=== PATIENT | female | born 1975 | race Hispanic/Latino ===

== ENCOUNTER 2023-06-23 15:53 | Emergency (ER) | payer SELFPAY ==
[2023-06-23 18:34] LABS: Albumin 3.1 g/dL (3.4-5.0); Albumin/Globulin Ratio 0.8 (1.1-1.8); Bilirubin Total 1.7 mg/dL (0.2-1.0); Globulin 3.9 g/dL (2.3-3.5)
[2023-06-23 18:44] LABS: Absolute Basophils 0.1 K/uL (0-0.5); Absolute Lymphocytes (CBC) 1.4 K/uL (0.7-4.9); Absolute Monocytes 0.8 K/uL (0.1-1.3); Absolute Neutrophil 6.3 K/uL (1.8-8.0); Basophils % 0.7 % (0-1.3); Eosinophils % 0.3 % (0-4.4); Hematocrit 36.9 % (36.0-45.0); Hemoglobin 11.8 g/dL (12.0-15.0); Lymphocytes % 16.7 % (15.3-44.8); MCH 24.2 pg (27.0-35.0); MCHC 31.9 g/dL (32.0-36.0); MCV 75.8 fL (80-100); MPV 8.1 fL (7.6-11.3); Monocytes % 9.2 % (3.3-12.3); Neutrophils % 73.1 % (41.7-73.7); Platelets 396 thou/uL (152-406); RBC Red Blood Cell Count 4.87 M/uL (3.86-4.86); Red Cell Distribution Width 18.6 % (12.1-15.2)
--- NOTE | 2023-06-23 19:11 | EDPHYS ---
Physician Documentation [facility] Name: Angeli Bueno Age: 47 yrs Sex: Female : 1975 Arrival Date: 06/23/2023 Time: 15:53 Bed DX3 Private MD: ED Physician Yaron López HPI: 06/22 16:44 This 47 yrs old Female presents to ER via Ambulatory with complaints of Leg ec2 Pain. 16:44 Patient arrives today for evaluation of bilateral lower extremity swelling. Patient ec2 reports that she was previously seen for this and was prescribed Lasix. Patient reports no significant difficulty breathing, no chest pain. Patient reports no known cardiac disease, no known renal or liver pathology. Patient reports she has not taken Lasix in the bedtime.. Historical: - Allergies: 16:37 No Known Allergies; nj1 - PMHx: 16:37 None; nj1 - Immunization history:: Client reports receiving the 2nd dose of the Covid vaccine. - Infectious Disease History:: Denies. - Social history:: Smoking status: Patient denies any tobacco usage or history of. ROS: 16:44 Constitutional: as per hpi ec2 Exam: 16:44 Constitutional: GEN: NAD Head: atraumatic Eyes: EOMI Ears: External ears are ec2 normal. CV: regular rate, 2+ bilateral lower extremity edema from the ankle up to the knee. LUNGS: no respiratory distress ABD: non-distended SKIN: no evidence of rashes MSK: no evidence of trauma NEURO: moves all extremities equally Vital Signs: 16:32 BP 129 / 93; Pulse 74; Resp 16; Temp 98.2(O); Pulse Ox 95% on R/A; Weight 72.57 kg (M); nj1 Height 5 ft. 4 in. ; Pain 7/10; 16:32 Body Mass Index 26.66 (72.57 kg, 165 cm) nj1 16:32 Pain Scale: Adult nj1 MDM: 16:38 Patient medically screened. ec2 16:44 Data reviewed: vital signs. ED course: Patient arrives today for evaluation of lower ec2 extremity edema. Examination remarkable for cardiovascular findings as above. Will obtain lab work, will assess for renal dysfunction, liver pathology. Patient otherwise with no chest pain to indicate she is having ACS.. 19:10 ED course: On reassessment patient is well-appearing in no acute distress. Discharged ec2 home and started on Lasix. Will give information follow-up primary care doctor. Return precautions given. Patient needs outpatient evaluation for congestive heart failure.. 06/22 16:42 Order name: CBC with Diff; Complete Time: 18:58 ec2 06/22 16:42 Order name: CMP; Complete Time: 18:46 ec2 06/22 16:42 Order name: BNP; Complete Time: 18:46 ec2 Administered Medications: 19:28 Drug: Furosemide PO 20 mg PO once Route: PO; cm10 19:30 Follow up: Response: Medication administered at discharge. cm10 Disposition Summary: 06/23/23 19:10 Discharge Ordered Notes: Location: Home ec2 Condition: Stable ec2 Diagnosis - Lower Extremity Edema ec2 Followup: ec2 - With: Private Physician - When: - Reason: Recheck today's complaints, Re-evaluation by your physician Followup: ec2 - With: Jeffy Rubio DO - When: - Reason: Recheck today's complaints Discharge Instructions: - Discharge Summary Sheet ec2 Forms: - Medication Reconciliation Form ec2 - Thank You Letter ec2 - Antibiotic Education ec2 - Prescription Opioid Use ec2 - Patient Portal Instructions ec2 - Leadership Thank You Letter ec2 Prescriptions: - Lasix 20 mg Oral Tablet - take 1 tablet ORAL route once daily; 20 tablet; Refills: 0, Product Selection ec2 Permitted Signatures: Dispatcher [employer] Emma Rodrigez RN RN nj1 Kiki Brito RN RN cm10 Yaron López MD MD ec2
--- NOTE | 2023-06-23 19:11 | ER ---
Nurse's Notes [facility] Name: Angeli Bueno Age: 47 yrs Sex: Female : 1975 Arrival Date: 06/23/2023 Time: 15:53 Bed DX3 Private MD: Diagnosis: Lower Extremity Edema Presentation: 06/22 16:32 Chief complaint: Patient states: Swollen legs for about a week, getting worse. Seen at [facility] a clinic earlier today and was advised to come to ED for further evaluation and treatment. Coronavirus screen: Vaccine status: Patient reports receiving the 2nd dose of the covid vaccine. Ebola Screen: Patient denies travel to an Ebola-affected area in the 21 days before illness onset. Initial Sepsis Screen: Does the patient meet any 2 criteria? No. Patient's initial sepsis screen is negative. Does the patient have a suspected source of infection? No. Patient's initial sepsis screen is negative. Risk Assessment: Do you want to hurt yourself or someone else? Patient reports no desire to harm self or others. Onset of symptoms was June 2023. 16:32 Method Of Arrival: Ambulatory [facility] 16:32 Acuity: JANNY 3 [facility] Triage Assessment: 16:38 General: Appears in no apparent distress. comfortable, Behavior is calm, cooperative, [facility] appropriate for age. Pain: Complains of pain in right leg and left leg Pain currently is 7 out of 10 on a pain scale. Historical: - Allergies: 16:37 No Known Allergies; ar1 - PMHx: 16:37 None; [facility] - Immunization history:: Client reports receiving the 2nd dose of the Covid vaccine. - Infectious Disease History:: Denies. - Social history:: Smoking status: Patient denies any tobacco usage or history of. Screenin:29 [facility] ED Fall Risk Assessment (Adult) History of falling in the last 3 months, cm10 including since admission No falls in past 3 months (0 pts) Confusion or Disorientation No (0 pts) Intoxicated or Sedated No (0 pts) Impaired Gait No (0 pts) Mobility Assist Device Used No (0 pt) Altered Elimination No (0 pt) Score/Fall Risk Level 0 - 2 = Low Risk Oriented to surroundings, Maintained a safe environment, Hourly rounding (assess needs \T\ fall precautionary measures) done. Abuse screen: Denies threats or abuse. Denies injuries from another. Nutritional screening: No deficits noted. Tuberculosis screening: No symptoms or risk factors identified. Assessment: 17:59 Reassessment: Patient appears in no apparent distress at this time. Patient is alert, nj1 oriented x 3, equal unlabored respirations, skin warm/dry/pink. 19:29 General: Appears in no apparent distress. comfortable, Behavior is calm, cooperative. cm10 Neuro: No deficits noted. Level of Consciousness is awake, alert, obeys commands, Oriented to person, place, time, situation. Respiratory: No deficits noted. Airway is patent Respiratory effort is even, unlabored, Respiratory pattern is regular, symmetrical. Vital Signs: 16:32 BP 129 / 93; Pulse 74; Resp 16; Temp 98.2(O); Pulse Ox 95% on R/A; Weight 72.57 kg (M); nj1 Height 5 ft. 4 in. ; Pain 7/10; 16:32 Body Mass Index 26.66 (72.57 kg, 165 cm) ar1 16:32 Pain Scale: Adult [facility] ED Course: 15:59 Patient arrived in ED. mr 15:59 Yaron López MD is Attending Physician. ec2 16:37 Triage completed. nj1 16:38 Arm band placed on left wrist. nj1 18:10 Initial lab(s) drawn, by ED staff, sent to lab. ll1 19:11 Jeffy Rubio DO is Referral Physician. ec2 19:29 Patient has correct armband on for positive identification. Provided Education on: cm10 Follow-up instructions. 19:30 No provider procedures requiring assistance completed. Patient did not have IV access cm10 during this emergency room visit. Administered Medications: 19:28 Drug: Furosemide PO 20 mg PO once Route: PO; cm10 19:30 Follow up: Response: Medication administered at discharge. cm10 Medication: 19:30 VIS not applicable for this client. cm10 Outcome: 19:10 Discharge ordered by MD. ec2 19:30 Discharged to home ambulatory, cm10 19:30 Condition: good 19:30 Discharge instructions given to patient, Instructed on discharge instructions, follow up and referral plans. medication usage, Demonstrated understanding of instructions, follow-up care, medications, Prescriptions given X 1, 19:30 Patient left the ED. cm10 Signatures: Katt Gaspar, Reg Reg Rosales Page, RN RN ll1 Emma Santacruz RN RN nj1 Kiki Brito RN RN cm10 Yaron López MD MD ec2 Corrections: (The following items were deleted from the chart) 16:40 16:38 Pain: Complains of pain in right leg and left leg nj1 nj1
[2023-06-23] MEDS ORDERED: FUROSEMIDE 20 MG TABLET ONE (19:27)
[2023-06-23 22:52] VITALS: BP 129/93; TEMP 98.2; O2SAT 95
== END 2023-06-23 19:30 | disposition home or self-care (01) ==
LOC: ER 15:53
DX: R60.9 Edema, unspecified (principal)
CPT/HCPCS: 36415; 80053; 83880; 85025; 99283